=== PATIENT | male | born 2000 | race Two or more races ===

== ENCOUNTER 2022-02-16 23:27 | Emergency (ER) | payer SELFPAY ==
[~2022-02-16] VITALS: Ht 177.8 cm; Wt 77.3 kg
[2022-02-16 23:59] LABS: COVID AG,FIA SOURCE NASAL SWAB
[2022-02-17 00:20] LABS: INFLUENZA TYPE A NEGATIVE FOR TYPE A (NEGATIVE); INFLUENZA TYPE B NEGATIVE FOR TYPE B (NEGATIVE)
[2022-02-17] MEDS ORDERED: LORazepam 1 MG TABLET PO ONE (01:45)
[2022-02-17 02:46] VITALS: BP 125/76
== END 2022-02-17 02:55 | disposition home or self-care (01) ==
LOC: EMS 23:29
DX: F41.9 Anxiety disorder, unspecified (principal); Z20.822 Contact with and (suspected) exposure to COVID-19
CPT/HCPCS: 71046; 87804; 93005; 99285

== ENCOUNTER 2024-01-10 16:06 | Emergency (ER) | payer OTHER ==
[~2024-01-10] VITALS: Ht 172.7 cm; Wt 63.6 kg
[2024-01-10 16:29] VITALS: BP 112/65; PULSE 69; RESP 14; TEMP 98.1
[2024-01-10] MEDS: SILVER SULFADIAZINE 1% 25 GM CREAM TP ONE (17:19)
[2024-01-10] MEDS: ACETAMINOPHEN/CODEINE 300-30 MG TABLET PO ONE (17:19)
== END 2024-01-10 19:04 | disposition home or self-care (01) ==
LOC: EMS 16:06
DX: T23.201A Burn of second degree of right hand, unspecified site, initial encounter (principal); X08.8XXA Exposure to other specified smoke, fire and flames, initial encounter; Y93.89 Activity, other specified; Y92.89 Other specified places as the place of occurrence of the external cause; Y99.8 Other external cause status
CPT/HCPCS: 16020; 99283